=== PATIENT | female | born 1990 | race Caucasian/White ===

== ENCOUNTER → 2020-01-23 | Outpatient (CLI) | payer OTHER | LOC: COL.RAD 12:31 | DX: N80.0 Endometriosis of uterus (principal); Z90.710 Acquired absence of both cervix and uterus | CPT/HCPCS: A9585 ==

== ENCOUNTER 2020-07-22 19:35 | Observation (INO) | payer OTHER ==
[~2020-07-22] VITALS: Ht 167.6 cm; Wt 90.9 kg
[2020-07-22 20:56] LABS: COLLECTION METHOD CLEAN CATCH
[2020-07-22 21:02] LABS: BASO # 0.1 (0.0-0.2); BASO % 0.6 % (0.0-2.0); EOS # 0.1 (0.0-0.7); EOS % 0.8 % (0-4.0); GRAN # 5.1 (1.4-6.5); GRAN % 56.3 % (42.2-75.2); HEMATOCRIT 41.8 % (37.0-47.0); LYMPH # 3.1 (1.2-3.4); LYMPH % 34.6 % (20.0-51.0); MEAN CELL VOLUME 87 fl (80.0-100.0); MEAN CORPUSCULAR HEMOGLOBIN 29 pg (27.0-31.0); MEAN CORPUSCULAR HGB CONC 34 g/dl (33.0-37.0); MEAN PLATELET VOLUME 9.3 fl (7.4-10.4); MONO # 0.7 (0.1-0.6); MONO % 7.6 % (1.7-9.3); PLATELET COUNT 330 K/mm3 (130-400); REDCELL DISTRIBUTION WIDTH-CV 13.2 % (11.5-14.5)
[2020-07-22 21:03] LABS: PH 8 (5-8); SQUAMOUS EPITHELIAL 0-2 /hpf; URINE APPEARANCE Clear; URINE BACTERIA None Seen /hpf; URINE BILIRUBIN Negative (NEGATIVE); URINE BLOOD Negative (NEGATIVE); URINE COLOR Yellow; URINE GLUCOSE Negative (NEGATIVE); URINE KETONE Negative (NEGATIVE); URINE LEUKOCYTE ESTERASE Negative (NEGATIVE); URINE NITRATE Negative (NEGATIVE); URINE PROTEIN(semi-quant) Negative (NEGATIVE); URINE RBC 0-2 /hpf; URINE UROBILINOGEN Negative (NEGATIVE)
--- NOTE | 2020-07-23 01:55 | NUR ---
PT TO UNIT AT THIS TIME FOLLOWING DIAGNOSTIC LAPROSCOPY FOR POSSIBLE ECTOPIC . PT HAS 2 POKES COVERED WITH BANDAID, CDI. VS WNL, NO VAGINAL BLEEDING NOTED AT THIS TIME. PT SIPPING WATER, REQUESTING PAIN MEDICATION WHEN AVAILABLE.
[2020-07-23 02:00] VITALS: BP 115/59; PULSE 81
[2020-07-23 02:04] VITALS: TEMP 98.5
[2020-07-23 02:15] VITALS: BP 111/78; PULSE 91
[2020-07-23 02:30] VITALS: BP 112/66; PULSE 76
[2020-07-23 02:45] VITALS: BP 111/59; PULSE 70
--- NOTE | 2020-07-23 04:00 | NUR ---
0355- DISCHARGE INSTRUCTIONS REVIEWED WITH PT AND SPOUSE, QUESTIONS ENCOURGED AND ANSWERED, UNDERSTANDING VERBALIZED. IV DC'D. 0400- PT OFF THE UNIT AMBULATORY WITH SPOUSE FOR HOME.
== END 2020-07-23 04:00 | disposition home or self-care (01) ==
LOC: COL.ER 19:35 → OB 22:54
PROVIDERS: Emergency Medicine; ADMIT Obstetrics & Gynecology
DX: R10.31 Right lower quadrant pain (principal); N83.8 Other noninflammatory disorders of ovary, fallopian tube and broad ligament; F41.9 Anxiety disorder, unspecified; F32.9 Major depressive disorder, single episode, unspecified; Z98.51 Tubal ligation status
CPT/HCPCS: G0378; J1100; J1885; J2405; J2704; J2710; J3010; J7030

== ENCOUNTER → 2021-10-04 | Outpatient (CLI) | payer OTHER | LOC: MC.RAD 07:22 | DX: N63.20 Unspecified lump in the left breast, unspecified quadrant (principal); R59.0 Localized enlarged lymph nodes ==